=== PATIENT | male | born 1960 | race Caucasian/White ===

== ENCOUNTER → 2024-09-10 10:30 | Outpatient (CLI) | payer BC, SELFPAY ==
--- NOTE | 2024-09-10 10:33 | DI.US.S_ITS ---
PROCEDURE: US THYROID INDICATIONS: palpable on the right, s/p drainage 03/2024 TECHNIQUE: Real-time scanning was performed of the thyroid gland, with image documentation. COMPARISON: None. FINDINGS: Thyroid: Right lobe measures 4.1 x 2.1 x 1.5 cm. Left lobe measures 4.3 x 1.1 x 1.4 cm. Isthmus is 0.5 cm thick. Echotexture is homogeneous. Nodule number: 1 Location: Right upper Size: 1.2 x 0.8 x 0.8 cm. Composition: Solid Echogenicity: Hypoechoic Shape: wider than tall. Margins: Smooth Echogenic foci: Macro calcifications Total points: 5 ACR TI-RADS category: Moderately suspicious Nodule number: 2 Location: Right mid Size: 1.9 x 1.9 x 1.8 cm. Composition: Cystic Echogenicity: Anechoic Shape: wider than tall. Margins: Smooth Echogenic foci: None Total points: 0 ACR TI-RADS category: Not suspicious IMPRESSION: Moderately suspicious nodule within the right upper thyroid measuring 1.2 cm. One year follow-up ultrasound is recommended. Cystic nodule measuring 1.9 cm in the right mid thyroid gland. ACR TI-RADS definitions and recommendations: TI-RADS 1 (benign): 0 points. FNA not needed. TI-RADS 2 (not suspicious): 2 points. FNA not needed. TI-RADS 3 (mildly suspicious): 3 points. * FNA if 2.5 cm or larger, follow up if 1.5 cm or larger (at 1, 3, and 5 years). TI-RADS 4 (moderately suspicious): 4-6 points. * FNA if 1.5 cm or larger, follow up if 1 cm or larger (at 1, 2, 3, and 5 years). TI-RADS 5 (highly suspicious): 7 points or more. * FNA if 1 cm or larger, follow up if 0.5 cm or larger (every year for 5 years). Dictated by: Jamal Foss M.D. on 09/10/2024 at 16:14 Approved by: Jamal Foss M.D. on 09/10/2024 at 16:16
== END ==
PROVIDERS: PCP Family Medicine; Referring Provider Family Medicine; Visit Provider Family Medicine
DX: E04.2 Nontoxic multinodular goiter (principal)
CPT/HCPCS: 76536

== ENCOUNTER → 2025-05-10 10:28 | Outpatient (CLI) | payer MEDICARE, SELFPAY ==
--- NOTE | 2025-05-10 10:31 | DI.MRI.S_ITS ---
PROCEDURE: MR CERVICAL SPINE WO CON INDICATIONS: further delineation of impingement per radiology TECHNIQUE: Noncontrast sagittal T1 spin echo and T2 fast spin echo, sagittal STIR, foraminal oblique sagittal T2 fast spin echo, and axial gradient echo or T2 fast spin echo through the cervical spine. COMPARISON: [facility] ([facility]), CR, XR CERVICAL SPINE 2V OR 3V, 04/13/2025, 15:20. FINDINGS: Image quality: Excellent Straightening of the cervical spine. Mild retrolisthesis of C5 on C6, C6 on C7. Vertebral body height of the cervical spine are well maintained. Scattered vertebral hemangiomas. There is a small T2 hyperintense, T1 hypointense lesion at the right lateral mass of C2, favoring degenerative. Multilevel disc bulge and disc desiccation. Cervical cord: Normal in signal Right neural foraminal stenosis: Moderate at C3-4, mild at C4-5. Moderate at C5-6, severe at C6-7, mild at C7-T1. Left neural foraminal stenosis: Mild at C2-3, C3-4, moderate at C4-5, C5-6, C6-7. Axial images: C2-3: Mild bilateral facet arthropathy. No central canal stenosis. C3-4: Posterior disc osteophyte complex. Mild central canal stenosis. Moderate bilateral facet arthropathy. C4-5: Moderate right, mild left facet arthropathy. No central canal stenosis. C5-6: Posterior disc osteophyte complex. Mild central canal stenosis. Uncovertebral and bilateral facet arthropathy. C6-7: Posterior disc osteophyte complex. Mild central canal stenosis. Uncovertebral and bilateral facet arthropathy. C7-T1: Unremarkable Other soft tissue findings: Unremarkable IMPRESSION: 1. Multilevel degenerative changes of the cervical spine, most pronounced at C5- 6, where there is mild central canal stenosis and moderate bilateral neural foraminal stenosis. Dictated by: Sarah Gonzalez M.D. on 05/10/2025 at 14:12 Approved by: Sarah Gonzalez M.D. on 05/10/2025 at 14:22
== END ==
PROVIDERS: Family Provider Family Medicine; PCP Family Medicine; Referring Provider Physician Assistant Medical; Visit Provider Physician Assistant Medical
DX: M48.02 Spinal stenosis, cervical region (principal); M47.812 Spondylosis without myelopathy or radiculopathy, cervical region
CPT/HCPCS: 72141

== ENCOUNTER → 2025-07-01 14:35 | Outpatient (CLI) | payer MEDICARE, SELFPAY | PROVIDERS: Family Provider Family Medicine; PCP Family Medicine; Referring Provider Physician Assistant Medical; Visit Provider Physician Assistant Medical | DX: R20.0 Anesthesia of skin (principal) | CPT/HCPCS: 95885; 95886; 95910 ==

== ENCOUNTER → 2025-08-25 09:55 | Outpatient (CLI) | payer MEDICARE, SELFPAY ==
--- NOTE | 2025-08-25 09:56 | DI.US.S_ITS ---
PROCEDURE: US THYROID INDICATIONS: thyroid cyst, 1 yr fu TECHNIQUE: Real-time scanning was performed of the thyroid gland, with image documentation. COMPARISON: [facility], US, US THYROID, 09/10/2024, 11:10. FINDINGS: Thyroid: Right lobe measures 4.9 x 1.8 x 1.3 cm (4.1 x 1.5 x 2.1 cm). Left lobe measures 4.9 x 1.8 x 1.3 cm (4.3 x 1.4 x 1.1 cm). Isthmus is 2.3 mm (4.5 mm) thick. Echotexture is homogeneous. Nodule number: 1 Location: Right superior Size: 1.1 x 0.8 x 0.6 cm. (1.2 x 0.8 x 0.8 cm) Composition: Mixed Echogenicity: Isoechoic Shape: wider than tall. Margins: Smooth Echogenic foci: Macro calcific Total points: 3 ACR TI-RADS category: 3 Nodule number: 2 Location: Right mid Size: 1.1 x 0.6 x 0.7 cm. (1.9 x 1.9 x 1.9 cm) Composition: Predominantly solid Echogenicity: Hypoechoic Shape: wider than tall. Margins: Lobulated Echogenic foci: Macro calcific Total points: 7 ACR TI-RADS category: 5 IMPRESSION: FNA of nodule 2 in the right mid thyroid lobe is recommended, as described below, if not already performed. ACR TI-RADS definitions and recommendations: TI-RADS 1 (benign): 0 points. FNA not needed. TI-RADS 2 (not suspicious): 2 points. FNA not needed. TI-RADS 3: 3 points. * FNA if 2.5 cm or larger, follow up if 1.5 cm or larger (at 1, 3, and 5 years). TI-RADS 4: 4-6 points. * FNA if 1.5 cm or larger, follow up if 1 cm or larger (at 1, 2, 3, and 5 years). TI-RADS 5: 7 points or more. * FNA if 1 cm or larger, follow up if 0.5 cm or larger (every year for 5 years). Dictated by: Stephanie MOSER Interpreted: Luiz Luna MD on 08/25/2025 at 15:59 Transcribed by: SUZI on 08/25/2025 at 16:21 Approved by: Luiz Luna M.D. on 08/27/2025 at 9:39
== END ==
PROVIDERS: PCP Family Medicine; Referring Provider Family Medicine; Visit Provider Family Medicine
DX: E04.2 Nontoxic multinodular goiter (principal)
CPT/HCPCS: 76536

== ENCOUNTER → 2025-09-10 12:55 | Outpatient (CLI) | payer MEDICARE, SELFPAY ==
--- NOTE | 2025-09-10 | PATH_ITS ---
Note [facility] Accession Number: [id number] TESTS RESULT FLAG UNITS REF RANGE LAB Clinician Provided Cytology Information No. of containers..01 Other (Miscellaneous) No. of containers..02 Previously Prepared Cytology Slide Source: RIGHT THYROID NODULE #2 DIAGNOSIS: RIGHT THYROID NODULE #2 BENIGN. B[place] CATEGORY II. SPECIMEN CONSISTS OF SCANT, BENIGN FOLLICULAR CELLS, RARE HEMOSIDERIN-LADEN MACROPHAGES, COLLOID, AND BLOOD. 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 Pathologist ICD10: 01 E04.1 Signed out by: Alexandria Calvert MD, Pathologist NPI- [id number] Performed by: Kevin Lloyd, Shaper Setter ([facility]) Gross description: 30 CC, RED, CLEAR RECIEVED: IN CYTOLYT WITH 6 ALCOHOL FIXED AND 6 QUICK STAINED SLIDES ALSO 1 RNA VIAL WILL ON 12-10-2026.VO /VDU 09/13/2025 1142 Local FLAG LEGEND: L-Low Normal,H-High Normal,LL-Alert Low,HH-Alert High <-Panic Low,>-Panic High,A-Abnormal,AA-Critical Abnormal Performed at: 01 =[address] [facility], [place] [address] David Shetty MD, Performed at: [address], [place], [place] [id number] MD David Shetty MD Phone: [phone]
--- NOTE | 2025-09-10 12:56 | DI.US.S_ITS ---
PROCEDURE: US FINE NEEDLE ASPIRATION INDICATIONS: thyroid nodule - biopsy per US report TECHNIQUE: The indications, alternatives, benefits, risks, and complications of the procedure were explained to the patient. Written informed consent was obtained and placed in the chart. The thyroid region was examined sonographically and a site was chosen for ultrasound guided percutaneous sampling. The skin was prepared and draped in the usual fashion, and anesthetized with 1% lidocaine infiltrated from the skin down to the thyroid gland. Multiple passes were then performed, with contents emptied into an appropriate pathology specimen container. A bandage was applied to the area of access at completion of the study. COMPARISON: None. FINDINGS: Location(s) of lesion(s) sampled: Nodule 2. Right inferior mid. [place]: 22 spinal & 25 gauge hypodermic needles. Number of passes: 6 Medications: 1% lidocaine for local anaesthesia. Complications: None. IMPRESSION: Successful ultrasound-guided thyroid nodule fine needle aspiration, with cytology results pending. Please see chart below for management recommendations based on cytology results. [facility] ReportingRecommendationsNon-diagnostic* Repeat US-guided FNA, with on-site cytology evaluation if possible. * Repeated non-diagnostic nodules without high suspicion US features: close observation vs surgical consult. * Consider surgery if nodule has high suspicion US features, grows >20% in 2 dimensions on followup, or patient has clinical risk factors for malignancy. Benign* If nodule has high suspicion US features: repeat US and FNA within 12 months. * If nodule has low to intermediate suspicion US features: repeat US at 12-24 months. If nodule grows (20% increase in at least 2 dimensions, with minimal increase of 2 mm or >50% change in volume), or development of new suspicious US features, then repeat FNA or continue followup. * If nodule has very low suspicion US features: followup US at >24 months. Atypia of undetermined significance, follicular lesion of undetermined significanceRepeat FNA, molecular testing, followup US, or surgical consult.Follicular neoplasm, suspicious for follicular neoplasmSurgical consult; also consider molecular testing. Suspicious for malignancySurgical consult.MalignantSurgical consult. Dictated by: Stephanie MOSER Interpreted: Chris Fisher MD on 09/10/2025 at 14:51 Transcribed by: JULISA on 09/10/2025 at 14:52 Approved by: Chris Fisher M.D. on 09/10/2025 at 16:36
== END ==
LOC: US 12:56
PROVIDERS: PCP Family Medicine; Visit Provider Radiology Diagnostic Radiology
DX: E04.1 Nontoxic single thyroid nodule (principal)
CPT/HCPCS: 10005

== ENCOUNTER → 2025-10-06 09:35 | Outpatient (CLI) | payer MEDICARE, SELFPAY ==
[2025-10-06 10:09] LABS: Hematocrit 43.1 % (41-53); Hemoglobin 14.7 g/dL (13.5-17.5); Mean Corpuscular HGB Conc 34.2 % (30-36); Mean Corpuscular Hemoglobin 31.4 PG (26-34); Mean Corpuscular Volume 92.0 fL (80-100); Platelet Count 262 X10^3/uL (150-400)
[2025-10-06 11:00] LABS: Alanine Aminotransferase 28 IU/L (<50); Albumin 4.5 g/dL (3.5-5.0); Albumin Globulin Ratio 1.7 (1.0-2.8); Alkaline Phosphatase 85 U/L (38-126); Blood Urea Nitrogen 14 mg/dL (9-20); Calcium 9.6 mg/dL (8.4-10.2); Carbon Dioxide 28 mmol/L (22-32); Chloride 103 mmol/L (98-107); Cholesterol 226 mg/dL (140-199); Estimated Glomerular Filt Rate > 60 mL/min (>60); Globulin 2.7 g/dL (1.7-4.1); Glucose 96 mg/dL (70-99); HDL Cholesterol 78 mg/dL (40-60); HEMOLYSIS < 15 (0-50); Potassium 4.6 mmol/L (3.4-5.1); Sodium 140 mmol/L (137-145); Total Protein 7.2 g/dL (6.3-8.2); Triglycerides 84 mg/dL (35-150)
[2025-10-06 11:09] LABS: Thyroid Stimulating Hormone 1.40 uIU/mL (0.47-4.68)
== END ==
PROVIDERS: Physician Assistant Medical; PCP Family Medicine; Referring Provider Family Medicine; Visit Provider Family Medicine
DX: Z13.6 Encounter for screening for cardiovascular disorders (principal); Z12.5 Encounter for screening for malignant neoplasm of prostate; M25.50 Pain in unspecified joint; E04.1 Nontoxic single thyroid nodule; R20.0 Anesthesia of skin
CPT/HCPCS: 36415; 80053; 80061; 84443; 85027; 85651; 86038; 86140; 86376; 86430; 86800; G0103